=== PATIENT | female | born 1990 | race Caucasian/White ===

== ENCOUNTER 2016-11-17 14:41 | Emergency (ER) | payer OTHER ==
[~2016-11-17] VITALS: Ht 170.2 cm; Wt 136.5 kg
[~2016-11-17 14:41] MED LIST: TRAMADOL HCL50 MG PO; ZOFRAN ODT4 MG SL
[2016-11-17] MEDS ORDERED: MONO-LINYAH1 EACH PO (15:17)
[2016-11-17] MEDS ORDERED: METFORMIN HCL500 MG PO (15:18)
[2016-11-17] MEDS ORDERED: ONDANSETRON ODT8 MG PO (18:04)
[2016-11-17] MEDS ORDERED: PROVERA10 MG PO (18:04)
[2016-11-17] MEDS ORDERED: ULTRAM50 MG PO (18:04)
== END 2016-11-17 18:38 | disposition home or self-care (01) ==
LOC: ED 14:41
DX: N93.8 Other specified abnormal uterine and vaginal bleeding (principal); J45.909 Unspecified asthma, uncomplicated; E66.01 Morbid (severe) obesity due to excess calories; Z90.49 Acquired absence of other specified parts of digestive tract; Z88.6 Allergy status to analgesic agent; Z88.5 Allergy status to narcotic agent; Z79.899 Other long term (current) drug therapy
CPT/HCPCS: 36415; 76830; 76856; 80053; 81001; 84703; 85025; 96374; 96375; 96376; 99284; J1170; J2405; J2550

== ENCOUNTER 2016-12-20 05:50 | Day surgery (SDC) | payer OTHER ==
[~2016-12-20] VITALS: Ht 170.2 cm; Wt 130.2 kg
[~2016-12-20 05:50] MED LIST changes: +METFORMIN HCL500 MG PO; +MONO-LINYAH1 EACH PO; +ONDANSETRON ODT8 MG PO; +PROVERA10 MG PO; +ULTRAM50 MG PO
--- NOTE | 2016-12-20 08:45 | NUR ---
12/20/16 0845 Tish Couch 0805 WITH ORAL AIRWAY IN PLACE, RESP EVEN AND UNLABORED. 0807 AIRWAY REMOVED. 0812 MD AT BEDSIDE. 0815 PT REPORTS PAIN 09/19 AND IS BACK TO SLEEP. O2 DECREASED TO 6L VIA MASK, SAT 100% 0818 MEDICATION GIVEN FOR PAIN. 0820 O2 REMOVED, PT O2 SAT 100% 0825 PT REPORTING NAUSEA AND DRY HEAVING, NO EMISIS. 0830 MEDICAITON GIVEN FOR NAUSEA.
--- NOTE | 2016-12-20 09:14 | NUR ---
PT IS BACK TO DS FROM PACU. FAMILY IS AT THE BEDSIDE. PT IS ASLEEP AND WILL BRIEFLY WAKE UP TO ANSWER QUESTIONS. CALL LIGHT WITHIN REACH. NO OTHER C/O'S AT THIS TIME. WILL REASSESS WITHIN THE HOUR.
--- NOTE | 2016-12-20 10:23 | NUR ---
PT UP TO BR W/RN STANDBY. PT AMBULATES WELL AND DENIES DIZZINESS. PT VOIDS 600 ML PINK TINGED URINE AND AMBULATES BACK TO BED. PT REQ TO BE SITTING UP IN BED. FAMILY REMAINS @ BS AND CALL LIGHT W/IN REACH. CHUCKS UNDER PATIENT CHANGED PRIOR PAD CONTAINED A MODERATE AMOUNT OF PINK/RED DRAINAGE.
[2016-12-20] MEDS ORDERED: IBUPROFEN800 MG PO (10:38)
[2016-12-20] MEDS ORDERED: ESTRACE2 MG PO (10:39)
[2016-12-20] MEDS ORDERED: PROVERA10 MG (10:40)
[2016-12-20] MEDS ORDERED: ULTRAM50 MG PO (10:41)
--- NOTE | 2016-12-20 11:00 | NUR ---
1055 AMB TO BR AMB WELL. HAS EATEN CRACKERS AND DRANK WATER. DENIES NAUSEA, RATES PAIN AT 6-7 DENIES NEED FOR PAIN MED. TOO EARLY FOR MOTRIN. WANTS TO GO HOME. VOIDED 325 EARLIER. FAMILY HERE TO TAKE PT HOME.
--- NOTE | 2017-01-13 08:34 | OR ---
[facility] [address] [place], [place] [address] Signed DATE OF OPERATION: 12/20/2016 SURGEON: Thao Triana MD PREOPERATIVE DIAGNOSES: Endometrial polyps, menometrorrhagia. POSTOPERATIVE DIAGNOSES: Endometrial polyps, menometrorrhagia, pending pathology. PROCEDURE: Hysteroscopy, D and C, resection of polyps. ANESTHESIA: General LMA. ESTIMATED BLOOD LOSS: Minimal. DRAINS: None. INDICATIONS AND FINDINGS: The patient is a 26-year-old female, 5, para 1, SAB 4, who has been having abnormal bleeding since August. Her bleeding has been almost nonstop since that time. She did stop for short period of time on very high-dose progesterone, but then immediately restarted heavy bleeding. Hysterosonogram was done in the office, which revealed probable endometrial polyps as well as a thickened endometrium despite the fact that she continued to bleed. At the time of surgery, exam under anesthesia revealed an apparently normal size uterus. The adnexa could not be appreciated. The patient does have morbid obesity. The cavity sounded to 10 cm. The cavity was quite irregular with multiple polypoid appearing areas. DESCRIPTION OF PROCEDURE: The patient was prepped and draped in the dorsal lithotomy position. The swan neck speculum was used in the posterior cul-de-sac because of her size. The anterior lip of the cervix was then visualized and grasped with a single-tooth tenaculum. The cavity was sounded to 10 cm. The endocervical canal was then easily dilated to a #8 dilator. The MyoSure device was then placed using saline. The cavity was evaluated and multiple irregular areas identified. The MyoSure device was removed and D and C was done with Electronically Signed By: THAO TRIANA MD 01/13/17 0834 PATIENT NAME: KD CARRIZALES OPERATIVE REPORT DATE OF : [birth year] PHYSICIAN: THAO TRIANA MD REPORT #: [id number] REPORT IS CONFIDENTIAL AND NOT TO BE RELEASED WITHOUT AUTHORIZATION [facility] [address] [place], [place] [address] Signed removal of a small amount of tissue. The MyoSure device was replaced using the MyoSure LITE and the abnormal areas were removed from both the anterior and posterior aspects of the uterus. Following this, it did appear that the cavity was fairly regular without any evidence of remaining polyps. The procedure was then terminated. There was difficulty with the MyoSure device meaning that there was quite a bit of fluid spillage on the floor and poor suctioning of the material. It was not felt that there was significant fluid retention by the patient. The tenaculum was then removed and there was some bleeding from the tenaculum sites, which responded to pressure. The weighted speculum was then removed and the patient was taken to the recovery room in good condition. MD DINA ClarkW/AUGIEL /[id number] cc: Raquel Electronically Signed By: THAO TRIANA MD 01/13/17 0834 PATIENT NAME: KD CARRIZALES OPERATIVE REPORT DATE OF : [birth year] PHYSICIAN: THAO TRIANA MD REPORT #: [id number] REPORT IS CONFIDENTIAL AND NOT TO BE RELEASED WITHOUT AUTHORIZATION
== END 2016-12-20 10:55 | disposition home or self-care (01) ==
LOC: DS 05:50
PROVIDERS: Obstetrics & Gynecology
PROC: 0UDB8ZX Extraction of Endometrium, Via Natural or Artificial Opening Endoscopic, Diagnostic (ICD-10-PCS; 2016-12-20)
PROC: 0UB98ZX Excision of Uterus, Via Natural or Artificial Opening Endoscopic, Diagnostic (ICD-10-PCS; principal; 2016-12-20 06:45)
DX: N84.0 Polyp of corpus uteri (principal); E66.01 Morbid (severe) obesity due to excess calories; J45.20 Mild intermittent asthma, uncomplicated; G43.909 Migraine, unspecified, not intractable, without status migrainosus; Z90.49 Acquired absence of other specified parts of digestive tract; Z98.890 Other specified postprocedural states; Z88.8 Allergy status to other drugs, medicaments and biological substances; Z79.899 Other long term (current) drug therapy
CPT/HCPCS: 00952; 84703; J1100; J1885; J2250; J2405; J2704; J2765; J3010; J7120

== ENCOUNTER 2018-06-21 09:36 | Emergency (ER) | payer OTHER ==
[~2018-06-21] VITALS: Ht 170.2 cm; Wt 142.0 kg
[~2018-06-21 09:36] MED LIST changes: +ESTRACE2 MG PO; +IBUPROFEN800 MG PO; +PROVERA10 MG
[2018-06-21] MEDS ORDERED: GLUCOPHAGE1000 MG PO (09:56)
[2018-06-21] MEDS ORDERED: DOXYCYCLINE HY100 MG PO (09:57)
[2018-06-21] MEDS ORDERED: FLAGYL500 MG PO (09:58)
== END 2018-06-21 13:20 | disposition home or self-care (01) ==
LOC: ED 09:36
DX: N93.9 Abnormal uterine and vaginal bleeding, unspecified (principal); R11.2 Nausea with vomiting, unspecified; E66.01 Morbid (severe) obesity due to excess calories; J45.909 Unspecified asthma, uncomplicated; Z90.49 Acquired absence of other specified parts of digestive tract; Z88.6 Allergy status to analgesic agent; Z88.5 Allergy status to narcotic agent; Z79.84 Long term (current) use of oral hypoglycemic drugs; Z79.899 Other long term (current) drug therapy
CPT/HCPCS: 76830; 76856; 80053; 81001; 83690; 84703; 85025; 96361; 96374; 96375; 99284-25; J1885; J2405; J7030

== ENCOUNTER 2018-08-12 06:55 | Day surgery (SDC) | payer OTHER ==
[~2018-08-12] VITALS: Ht 170.2 cm; Wt 141.5 kg
--- NOTE | ~2018-08-12 | OR ---
[facility] [address], [place] [address] Draft DATE OF OPERATION: 08/12/2018 SURGEON: Thao Triana MD WEB CONSULTANT: Yonis Sloan MD PREOPERATIVE DIAGNOSES: Pelvic pain, history of endometriosis, morbid obesity. POSTOPERATIVE DIAGNOSES: Pelvic pain, history of endometriosis, morbid obesity; normal pelvis. PROCEDURE PERFORMED: Diagnostic laparoscopy. ANESTHESIA: General ET. ESTIMATED BLOOD LOSS: Minimal. DRAINS: None. INDICATIONS AND FINDINGS: The patient is a 28-year-old female, 5, para 1, SAB 4, who has a history of irregular bleeding, though she has done well on cyclic progestins. She also has history of pelvic pain. She has a history of endometriosis on prior laparoscopy. Ultrasound was normal. She did not respond to a course of antibiotics. At the time of surgery, exam under anesthesia was normal, though was very difficult to fully evaluate the adnexa given her morbid obesity. At the time of laparoscopy, the pelvis was found to be completely normal. DESCRIPTION OF PROCEDURE: The patient was prepped and draped in the dorsal lithotomy position. A weighted speculum was placed. The anterior lip of the cervix was visualized and grasped with a single-tooth tenaculum. The Hulka clamp was then placed. The tenaculum and speculum were then removed. Attention was directed above. The infraumbilical area was injected with 0.5% Marcaine plain. An incision was made with a knife and then each layer was PATIENT NAME: KD CARRIZALES OPERATIVE REPORT DATE OF : [birth year] REPORT #: [id number] PHYSICIAN: THAO TRIANA MD PCP: NO PRIMARY CARE PHYSICIAN REPORT IS CONFIDENTIAL AND NOT TO BE RELEASED WITHOUT AUTHORIZATION [facility] [address] [place], [place] [address] Draft serially elevated and incised until the fascia could finally be identified. The abdominal wall was extremely deep. The fascia was opened and stay sutures were placed. The peritoneum was then opened bluntly and the Maday cannula was placed. The bariatric length was used. Following this, the balloon was inflated and the abdomen was inflated with carbon dioxide gas. Placement of the scope confirmed proper positioning. Following this, a 2nd port was done laterally. This was placed on the patient's left slightly below the level of the umbilicus. The attempt was made to transillumination, though this was impossible given the thickness of the abdominal wall. An area was chosen, injected with the Marcaine, incision made with a knife and a 5 mm port placed under direct vision. The pelvis was then thoroughly evaluated. There was no evidence of any endometriosis or scar tissue found. Following this, the procedure was complete. The inserts removed after allowing as much CO2 as possible to escape. The fascial incision of the umbilicus was reidentified and closed with a running suture of 0 Vicryl. The skin incisions were closed with subcuticular sutures of 3-0 Vicryl Rapide. The vaginal instruments removed. There was no evidence of any ongoing bleeding from the cervix. The patient was then taken to the recovery room in good condition. MD DINA ClarkW/AUGIEL /[id number] Copies: ~ PATIENT NAME: KD CARRIZALES OPERATIVE REPORT DATE OF : [birth year] REPORT #: [id number] PHYSICIAN: THAO TRIANA MD PCP: NO PRIMARY CARE PHYSICIAN REPORT IS CONFIDENTIAL AND NOT TO BE RELEASED WITHOUT AUTHORIZATION
[~2018-08-12 06:55] MED LIST changes: +DOXYCYCLINE HY100 MG PO; +FLAGYL500 MG PO; +GLUCOPHAGE1000 MG PO; +VITAMIN D35000 UNI1 PO
--- NOTE | 2018-08-12 08:24 | NUR ---
ASSISTED TO BR. IV PATENT AND DENIES ANY NEEDS. UPDATED ON WAIT.
[2018-08-12] MEDS ORDERED: VENTOLIN HFA18 GM INH (10:29)
--- NOTE | 2018-08-12 12:13 | NUR ---
08/12/18 1212 Sumaya Shah 1206-PATIENT ARRIVED TO PACU ON 6L MASK RR EVEN. SR. PATIENT REACTIVE TO VOICE OPENS EYES DOES NOT FOLLOW COMMANDS. 2 BANDAIDS TO ABDOMEN CDI.
--- NOTE | 2018-08-12 12:54 | NUR ---
RETURNED SAYS VERY PAINFUL RATES PAIN 08/19 REQ IV DOSE RX.OXIMETRY ON TO MONITOR AFTER MORPHINE GIVEN.
--- NOTE | 2018-08-12 13:15 | NUR ---
PT RESTING IN BED AND USING HER PHONE, PT RATES PAIN 4/10 WHILE NOT MOVING AND 9/10 WITH MOVEMENT. PT ASKED FOR MORE JELLO, JELLO GIVEN AND PT TALKING ON THE PHONE. NO GRIMACING NOTED. RN WILL CONTINUE TO MONITOR.
--- NOTE | 2018-08-12 13:37 | NUR ---
HAS EATEN JELLO AND CRACKERS AND PUDDING 200MLS WATER. DENIES NAUSEA. RATES Pain at 5/10 and states this is acceptable.
--- NOTE | 2018-08-12 14:10 | NUR ---
UP TO BR VOIDS 100MLS.
[2018-08-12] MEDS ORDERED: IBU800 MG PO (14:46)
[2018-08-12] MEDS ORDERED: ULTRAM50 MG PO (14:46)
[2018-08-12] MEDS ORDERED: ZOFRAN8 MG PO (14:47)
--- NOTE | 2018-08-12 15:16 | NUR ---
WHEN GETTING IN CAR STATES FELT POP IN UMBILICUS LOOKED AND BANDAID AND STERI STRIP STILL INTACT. IF ANY CHANGES AT HOME TO CALL DR PICKARD.
== END 2018-08-12 15:05 | disposition home or self-care (01) ==
LOC: DS 06:55
PROVIDERS: Obstetrics & Gynecology
PROC: 0WJJ4ZZ Inspection of Pelvic Cavity, Percutaneous Endoscopic Approach (ICD-10-PCS; principal; 2018-08-12 09:15)
DX: R10.2 Pelvic and perineal pain (principal); E66.01 Morbid (severe) obesity due to excess calories; Z88.8 Allergy status to other drugs, medicaments and biological substances; Z88.5 Allergy status to narcotic agent; Z79.899 Other long term (current) drug therapy; Z79.84 Long term (current) use of oral hypoglycemic drugs; Z68.42 Body mass index [BMI] 45.0-49.9, adult
CPT/HCPCS: 00840; 93005; 93010; J0131; J0330; J1100; J1644; J1885; J2250; J2270; J2405; J2704; J2765; J3475; J7120

== ENCOUNTER 2021-07-07 15:06 | Inpatient (IN) | payer OTHER ==
[~2021-07-07] VITALS: Ht 170.2 cm; Wt 113.4 kg
[~2021-07-07 15:06] MED LIST changes: +IBU800 MG PO; +VENTOLIN HFA18 GM INH; +ZOFRAN8 MG PO
--- OUTSIDE RECORDS SUMMARY | 2021-07-07 17:00 | XMS ---
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 E.D. VISIT COUNT (12 MO.) [address] TOTAL 4 NOTE: Visits indicate total known visits. ED/UCC VISIT TRACKING (12 MO.) 07/07/2021 15:06 [facility] [place] TYPE: Emergency COMPLAINT: - ABD PAIN, NAUSEA, BLOODY STOOL 07/05/2021 12:01 [facility] [place] TYPE: Emergency DIAGNOSES: - Bariatric surgery status - Thrombocytopenia, unspecified - ABD PAIN AND SWELLING NAUSEA FEVER 04/21/2021 14:20 [facility] [place] TYPE: Emergency DIAGNOSES: - Other allergy, initial encounter - Other acute postprocedural pain - FEVER POST OP PAIN POSSIBLE INFECTION 10/24/2020 12:46 [facility] [place] TYPE: Emergency DIAGNOSES: - COVID-19 - Elevated blood-pressure reading, without diagnosis of hypertension - SHORTNESS OF BREATH - Acute bronchitis due to other specified organisms - Pneumonia due to coronavirus disease 2018 INPATIENT VISIT TRACKING (12 MO.) 04/12/2021 05:42 [facility] [place] TYPE: Weight Management DIAGNOSES: 39363. E66.01, Z68.42 (ICD-10-CM) - 278.01, V85.42 (ICD-9-CM) - Class 3 severe obesity due to excess calories with serious comorbidity and body mass index (BMI) of 45.0 to 49.9 in adult (HCC) 08135. Morbid (severe) obesity due to excess calories 79863. Body mass index [BMI] 45.0-49.9, adult [email or web address]
[2021-07-07] MEDS ORDERED: OMEPRAZOLE20 MG PO (17:57)
[2021-07-07] MEDS ORDERED: ONDANSETRON ODT8 MG PO (19:56)
--- NOTE | 2021-07-08 03:17 | NUR ---
PATIENT ARRIVED TO THE FLOOR VIA STRETCHER. PATIENT ABLE TO PIVOT XFER TO HOSPITAL BED A 1PA. PATIENTS VITALS TAKEN AND RECORDED. IV INFUSING PER ORDER. PATIENT DENIES ANY NAUSEA. PATIENT RATES PAIN AT A 2/10 AND DENIES THE NEED FOR PAIN MEDICATION AT THIS TIME. WARM BLANKET PROVIDED. ADMISSION COMPLETED. EDUCATED PATIENT ON NPO AND ALL QUESTIONS ANSWERED, ORAL SWABS PROVIDED. PATIENT IS ON RA. PATIENT HAS ZIO MONITOR IN PLACE ON LEFT UPPER CHEST THAT WAS PLACED IN ED. PATIENTS BOWEL TONES ARE ACTIVE. PATIENTS ABD IS TENDER IN LEFT UPPER QUADRANT TO MID ABD. PATIENT DENIES ANY NEEDS. OREINTED PATIENT TO CALL LIGHT AND IT IS WITHIN REACH.
--- NOTE | 2021-07-08 04:01 | NUR ---
PATIENTS ATTEND CHANGED AND NICK CARE COMPLETED. PATIENT REPORTS 10/10 PAIN, PRN PAIN MEDICATION GIVEN PER ORDER. PATIENT GIVEN PRN NAUSEA MEDICATION FOR C/O NAUSEA. PATIENT REPOSITIONED IN BED. PATIENTS IV INFUSING PER ORDER. PATIENT PROVIDED ICE CHIPS. NO FURHTER NEEDS NOTED. CALL LIGHT IN REACH.
--- NOTE | 2021-07-08 04:07 | NUR ---
PATIENT IS RESTING IN BED WITH EYES CLOSED, RR 19. CALL LIGHT IN REACH.
--- NOTE | 2021-07-08 06:43 | NUR ---
VITALS TAKEN AND RECORDED. ATTEMPTED TO ASSIST PATIENT TO THE RESTRROM. PATIENT BECAME DIZZY AND LIGHT HEADED. PATIENT ASSISTED A 1PA TO [facility]. PATIENT ABLE TO VOID. INTAKE AND OUTPUT RECORDED. PATIENT RATES PAIN AT A 8/10 IN HER LUQ. PRN PAIN MEDICATION GIVEN PER ORDER. PATIENT DENIES ANY NAUSEA. IV INFUSING PER ORDER. NO FURTHER NEEDS NOTED. CALL LIGHT IN REACH.
--- NOTE | 2021-07-08 07:36 | NUR ---
RECVikram. BEDSIDE REPORT FROM NIGHT RN, ASSUMED ALL CARE OF PT.
--- NOTE | 2021-07-08 10:28 | NUR ---
PT. ESCORTED VIA STRETCHER TO ENDOSCOPY SUITE FOR EGD. UPDATED TO ALLERGIES AND PMH. IVF ACCOMPANIED PT.
--- NOTE | 2021-07-08 11:40 | NUR ---
07/08/21 1140 Tish Bird 1045 PT ARRIVED TO PACU ON 10L VAI MASK, JAW THRUST USED TO MAINTAIN AIRWAY. VSS. 1046 PT HEAD TURNED TO THE SIDE AND PT MAINTAINING HER OWN AIRWAY. 1053 PT WOKE AND O2 REMOVED. PT REORIENTED TO PACU AND EASILY FALLS BACK TO SLEEP. 1058 O2 SAT 90% AND PT WAKES EASILY TO TACTILE STIMULI AND IS ENCOURAGED TO DEEP BREATHE. O92 INCREASED TO HIGH 90S. 1115 MD TALKING TO PT AND VSS. PLAN OF CARE DISUCSSED. 1130 PT RETURNED TO MED-SURG ROOM AND REPORT GIVEN. PT UP TO BEDSIDE COMMODE WITH TWO RNS. VSS. ALL QUESTIONS ANSWERED AND BED PLUGGED IN.
--- NOTE | 2021-07-08 12:14 | NUR ---
PT. RETURNED TO ROOM AT 1135, EGD IS CLEAN AND ADVANCING DIET. ALL VSS, PT. RECEIVED ATROPINE IN CASE FOR SB 40'S. HR NOW 59, ASSISTED TO BSC FOR URINATION, NO DIZZINESS, JUST DROWSY FROM MEDS. PLACED SCD'S BILATERALLY, DISCUSSED HEPARIN WITH AND HER PMH OF JAYSHREE DANLOSE SYNDROME. LR IVF AT 125 ML HR, ADVANCED DIET TO FULL LIQUIDS.
--- NOTE | 2021-07-08 13:59 | NUR ---
SBA TO BSC FOR URINE, PT. SAT AT EOB AND WAS SLIGHTLY DIZZY, SHE WAS DIZZY THE WHOLE TIME ON THE BSC AND BACK TO BED, BED ALARM ON SECONDARY TO SLIGHT CONFUSION S/P PROCEDURE AND MEDS. SCD'S IN PLACE, IVF PATENT TO PUMP. SHE SAMPLED SOME LIQUIDS BUT THEN WENT BACK TO SLEEP. WILL TRIAL AMBULATION WHEN LESS SLEEPY.
--- NOTE | 2021-07-08 16:11 | NUR ---
ADMITTED WITH ABDOMINAL PAIN, DID REQUIRE DILAUDID LAST NIGHT. EGD COMPLETED TODAY WHICH WAS NEGATIVE. PMH; POTS, JAYSHREE DANLOSE SYNDROME. SHE DID GET DIZZY WHEN SITTING ON THE EDGE OF THE BED AND BSC AND BACK TO BED. SHE HAD THIS A YOUNG TEEN BUT OUTGREW IT AND STATES SINCE HER GASTRIC BYPASS SURGERY 05/01 AT [facility]. IT HAS FLARED UP AGAIN. SHE HAS A ZIO PATCH ON WHICH WAS PLACED IN THE ER. SB CONTINUES BETWEEN 40-60'S. LR IVF AT 125. B/P 118/62. DENIES NAUSEA, ADVANCED TO FL DIET BUT ONLY ATE ONE PUDDING AND A SMALL CUP OF JUICE. CARAFATE ORDERED.
--- NOTE | 2021-07-08 19:24 | OR ---
[facility] [address] [place], [place] [address] Signed DATE OF OPERATION: 07/08/2021 SURGEON: Dustin Hagan MD PREOPERATIVE DIAGNOSES: 1. Persistent epigastric pain, status post gastric sleeve resection [facility] (may 13, 2021). 2. Symptomatic bradycardia, unknown etiology. POSTOPERATIVE DIAGNOSES: Normal-appearing esophagus, stomach remnant and duodenum. CLOtest equivocal at 15 minutes. PROCEDURE: Esophagogastroduodenoscopy with biopsy. ANESTHESIA: Intravenous sedation, propofol infusion, Dustin Conway CRNA with pretreatment atropine 1 mg. INDICATION: This 31-year-old morbidly obese white woman is a patient of SHANNON Stone at the [facility]. The patient underwent a gastric sleeve resection for obesity June 12, 2021, at [facility]. She did not have any known perioperative complications. She presented to the hospital in [place] three days ago with complaints of epigastric left upper abdominal pain. She had been placed on omeprazole postoperatively by her operating team and has had virtual telehealth followups at [facility]. Her evaluation at [place] showed her to have a normal CT scan. However, IV contrast was not able to be given due to the shortage of IV contrast. As her symptoms did not improve, she presented to the [facility] in [place] yesterday and repeat CT scan with IV and GI contrast showed no evidence of complication related to operation, specifically no fluid collection, free air or signs of ischemic change. The patient has noted no benefit with omeprazole that she has been taking. She has no associated dysphagia, hematemesis or blood per rectum. Of note, she has lost 70 pounds since her operation two months ago. Associated with all of this has been symptomatic bradycardia. Her heart rate has been as low as mid to high 30s and as high as 50s to 100s depending on clinical circumstances. She feels severe pain in the epigastric and left upper quadrant upon Electronically Signed By: DUSTIN HAGAN MD 07/08/21 1924 PATIENT NAME: KD CARRIZALES OPERATIVE REPORT DATE OF : [birth year] REPORT #: [id number] PHYSICIAN: DUSTIN HAGAN MD PCP: YANI MELVIN REPORT IS CONFIDENTIAL AND NOT TO BE RELEASED WITHOUT AUTHORIZATION [facility] [address] [place], [place] [address] Signed eating. She has no associated dysphagia. She describes the pain as knife-like or razor like. The patient has been admitted to my service, given intravenous hydration and is recommended to undergo upper endoscopy at this time. The risk of bleeding, infection, perforation, precipitation of cardiac event and so forth have all been reviewed with her. She understands and wished to proceed. FINDINGS: The patient was pretreated with atropine 1 mg IV, which allowed her heart rate to be in the 80 to 100 range. She tolerated the procedure well. Upper endoscopy was essentially normal of the esophagus, stomach remnant and duodenum. There was no sign of ulceration or ischemia. The staple line was healing perfectly well. Her CLOtest is equivocal 15 minutes post procedure and we will keep an eye on that. Biopsies were taken of the esophagus, stomach and duodenum. There was no evidence of hiatal hernia on retroflexed view. There was no esophagitis or stricture. She did have a small diverticulum of the 2nd portion of the duodenum with a very narrow opening unlikely to be the source of her pain. DESCRIPTION OF PROCEDURE: The patient was brought to the endoscopy suite and placed in lateral decubitus position after receiving atropine 1 mg which allowed her heart rate of approximately 100 with a blood pressure of 121 systolic. Lidocaine topical hypopharyngeal anesthesia was given. A bite block was placed. She was given intravenous sedation with propofol infusional technique. An Olympus video upper endoscope was passed in the hypopharynx. The vocal cords were normal. Scope was advanced to the esophagus, which was normal throughout including no evidence of Bergman's epithelium, stricture, neoplasm or varices. The scope was passed to the stomach, which appeared completely healthy in every way. The staple line from resection was easily identified and there was no associated ulceration or signs of ischemia with it. The pylorus was normal. Scope was passed through into the duodenum, which was normal. Biopsies were taken of the duodenum and 2nd bulbar portions. The scope was withdrawn to the antrum for both LIZA and pathologic testing. Retroflexed view was able to be accomplished showing a normal flap valve. Biopsies were taken of the stomach for both LIZA and pathologic testing. The scope was withdrawn to the esophagus. It appeared normal. Biopsies were obtained nevertheless. Further withdrawal of the scope showed no other findings of concern. The scope was removed and the patient was taken to the recovery room in good condition. CONCLUDING DIAGNOSIS: Non ulcer dyspepsia or possible symptoms of irritable bowel syndrome. No evidence of ischemia or ulceration. She is on omeprazole currently. Empiric treatment with Carafate will be undertaken. We are mindful of possibility of H pylori-- The CLOtest currently is equivocal and treatment for H pylori will be important if H Electronically Signed By: DUSTIN HAGAN MD 07/08/21 1924 PATIENT NAME: KD CARRIZALES OPERATIVE REPORT DATE OF : [birth year] REPORT #: [id number] PHYSICIAN: DUSTIN HAGAN MD PCP: YANI MELVIN REPORT IS CONFIDENTIAL AND NOT TO BE RELEASED WITHOUT AUTHORIZATION [facility] [address] [place], [place] [address] Signed pylori is identified, of course. The patient noted just prior to induction of sedation that she had been discovered to have "irritable bowel syndrome" in her endoscopic evaluations elsewhere. If she does indeed have irritable bowel syndrome, this underlying malady be contribute to her gastrointestinal symptoms and thus be entirely unrelated to the sleeve procedure she has undergone. She is already enjoying a significant weight loss with the operation and it appears to have been optimally performed, in my opinion. MD MIGUEL ANGEL Hoskins/JENISE /[id number] cc: SHANNON Stone Dr., Dr., CAREY Savage Copies: ~ Electronically Signed By: DUSTIN HAGAN MD 07/08/21 1924 PATIENT NAME: KD CARRIZALES OPERATIVE REPORT DATE OF : [birth year] REPORT #: [id number] PHYSICIAN: DUSTIN HAGAN MD PCP: YANI MELVIN REPORT IS CONFIDENTIAL AND NOT TO BE RELEASED WITHOUT AUTHORIZATION
--- NOTE | 2021-07-08 19:24 | HP ---
[facility] [address], [place] [address] Signed ADMISSION DATE: 07/08/2021 REASON FOR ADMISSION: Epigastric pain and episodic symptomatic bradycardia, history of gastric sleeve resection two months ago. HISTORY OF PRESENT ILLNESS: This 31-year-old white woman lives in [place], [place] with her four children and live-in boyfriend. She underwent a gastric sleeve resection for morbid obesity at [facility] on July 13, 2021. She has lost 70 pounds thus far from her operation. In the past week or so, she has had increasing epigastric and left upper abdominal pain. She has had followup visits by a virtual technique through [facility] who is made aware of this. She is noted to have had bradycardia with heart rate as low as 39, but generally in the 50s. She presented to the emergency room in [place], [place] where she lives approximately three days ago and was evaluated there by CT scan. Due to the shortage of IV contrast, she had an enteric but not IV contrast abdominal CT scan, which is reported to have had no findings of note. She was considered to have a low platelet count there, however. This was in the 70s. Her symptoms persisted and she was advised by her provider Ms. Tilley at the [facility] to present to [facility] as they were considered to "have more things they could do." On that basis, she presented to the emergency room yesterday at 7:30 p.m., initially evaluated by Dr. Kitchen and subsequently by Dr. Savage. I was called approximately at midnight about this and recommended a repeat CT scan to assess if there was an enteric leak. A CT scan with the GI contrast and IV contrast was performed, ultimately showing no evidence of free air or perigastric inflammation. Notably her platelet count was 220,000 and her previous thrombocytopenia was considered spurious from a few days ago. Her symptoms are primarily stabbing epigastric and left subcostal pain. She feels like it is "razor blades" as soon as food enters her stomach. She does not have dysphagia and she has had no hematemesis or blood per rectum. Her bradycardic episodes have been as low as the high 30s. She notes that when this is happening and she is upright that she has tunnel vision which of course would indicate symptomatic bradycardia. A clay pigeon loader was consulted at [facility] by Dr. Kitchen who thought that it was not likely a cardiology problem primarily but rather a sign of secondary increased vagal tone related Electronically Signed By: DUSTIN HAGAN MD 07/08/21 1924 PATIENT NAME: KD CARRIZALES HISTORY AND PHYSICAL DATE OF : [birth year] REPORT #: [id number] PHYSICIAN: DUSTIN HAGAN MD PCP: YANI TILLEY REPORT IS CONFIDENTIAL AND NOT TO BE RELEASED WITHOUT AUTHORIZATION [address] [address] Signed to her abdominal pain. The bariatric surgeon, Dr. Handley at [facility] agreed with this according to notes I have available to me and would not be able to accept the patient for evaluation as a hospitalist "full." The patient is admitted for further evaluation and care. Evaluation in the emergency room confirmed the negative findings on the CT scan. Her white count was only 10.5, hematocrit 44.6, and platelets 216,000. Electrolytes are normal, creatinine 0.75. Her liver enzymes are normal. Urinalysis showed RBCs 4 to 6 and white cells 2 to 3 per high-power field. Leukocyte esterase was negative. Her COVID test was negative. Review of her emergency room course showed her to have symptomatic sensation of lightheadedness when lifting her head up. Her heart rate went as high as 80s to 90s upon sitting up in the 40s while lying supine. She is likely thought to be dehydrated. The patient since admission has been rehydrated with IV fluids and is generally feeling better. She has not been given anything to eat anticipating upper endoscopy likely this morning. REVIEW OF SYSTEMS: She denies any precordial chest pain. She does not have shortness of breath. Has had presyncopal symptoms as previously described upon rapid rising. PHYSICAL EXAMINATION: GENERAL: Pleasant white woman who does not look systemically toxic. VITAL SIGNS: Most recent vital signs show temperature of 97.3, pulse of 40, previously 54; blood pressure 102/50, O2 saturation 100% on room air. NECK: Trachea is midline. CHEST: Shows normal respiratory excursion. She has no tachypnea. HEART: Regular and on palpation approximately 50 beats per minute. ABDOMEN: Still somewhat obese but soft. There is mild tenderness in the epigastric area. Laparoscopic trocar site incisions are healing well. LABORATORY STUDIES: Are as previously noted including a white count of 10.5, hematocrit 44.6, platelets 216,000. Normal Chem profile, urinalysis and COVID test. I have reviewed the imaging of the CT scan including coronal and transverse images. I see no evidence of splenic infarct or splenic vein thrombosis. No sign of perigastric leak or free air. ASSESSMENT: The patient has been on PPI medication, which has been of no significant benefit to her current symptoms. Still the possibility of gastritis or ulceration is considered. This Electronically Signed By: DUSTIN HAGAN MD 07/08/21 1924 PATIENT NAME: KD CARRIZALES HISTORY AND PHYSICAL DATE OF : [birth year] REPORT #: [id number] PHYSICIAN: DUSTIN HAGAN MD PCP: YANI TILLEY REPORT IS CONFIDENTIAL AND NOT TO BE RELEASED WITHOUT AUTHORIZATION [facility] [address], [place] [address] Signed may not be necessarily acid related, but possibly ischemia related. Although it is "hard to kill the stomach" due to its redundant vascular supply, a gastric sleeve resection does have some risk of ischemia in the david greater curvature ( staple line.) I would recommend upper endoscopy be performed this morning. Likely Carafate may be of some benefit to her. She has already benefitted from admission with hydration and so forth. I see no evidence of cardiac ischemia upon review of her EKG which was performed in the emergency room just bradycardia as previously described with a heart rate of 39. The risk of bleeding, infection, and perforation related to upper endoscopy reviewed with her in detail. The possibility of adverse reaction to sedation also reviewed. On that basis and given her obesity and so forth, we will deploy the services of anesthesia for her sedation today. MD MIGUEL ANGEL Hoskins/AUGIEL /[id number] cc: Dr. Imtiaz Handley, [facility] Copies: ~ Electronically Signed By: DUSTIN HAGAN MD 07/08/21 1924 PATIENT NAME: KD CARRIZALES HISTORY AND PHYSICAL DATE OF : [birth year] REPORT #: [id number] PHYSICIAN: DUSTIN HAGAN MD PCP: YANI TILLEY REPORT IS CONFIDENTIAL AND NOT TO BE RELEASED WITHOUT AUTHORIZATION
--- NOTE | 2021-07-08 19:30 | NUR ---
REPORT RECEIVED FROM СВЕТЛАНА MUKHERJEE. pt RESTING IN BED WITH EYES CLSOED. BREATHING EQUAL AND UNLABORED. NO DISTRESS NOTED.
--- NOTE | 2021-07-08 20:28 | NUR ---
PT CALLED, SBA TO BSC, C/O DIZZINESS, MOVED SLOWLY, VOIDED WELL. BACK TO BED, CELL PHONE CHARGING FOR PT. ASSISTED PT TO LAY ON HER RIGHT SIDE, CALL LIGHT WITHIN REACH. NO OTHER NEEDS.
--- NOTE | 2021-07-08 21:10 | NUR ---
pt RESTING IN BED AWAKE. RATES PAIN 6/10 IN ABDOMEN. BOWEL TONES HYPOACTIVE X 4, ABD SOFT, TENDER WITH PALPATION IN MID ABD, LEFT UPPER ABD. PRN PAIN MEDICATION ADMINISTERED. EDUCATION PROVIDED ON SCHEDULED MEDICATIONS. ALERT AND ORIENTED. VS COMPLETE, HR REGULAR RHYTHM, BRADYCARDIC. pt DENIES DIZZINESS AT REST. CALL LIGHT IN REACH. SCDS ON. BED ALARM SET FOR SAFETY.
--- NOTE | 2021-07-08 21:42 | EKG ---
[facility] [address] [facility] [place], [place] [address] Signed Marked sinus bradycardia Abnormal ECG No previous ECGs available Confirmed by DORIS LEHMAN MD ([id number]) on 07/08/2021 9:42:20 PM Electronically Signed By: DORIS LEHMAN MD 07/08/212141 PATIENT NAME: KD CARRIZALES Electrocardiogram DATE OF : [birth year] PHYSICIAN: DORIS LEHMAN MD REPORT #: [id number] REPORT IS CONFIDENTIAL AND NOT TO BE RELEASED WITHOUT AUTHORIZATION
--- NOTE | 2021-07-08 23:23 | NUR ---
SBA TO BSC. BACK TO BED. PRIMARY RN IN ROOM, TO ASSIST.
--- NOTE | 2021-07-08 23:26 | NUR ---
IV PUMP ALARMING, RN YOLANDA IN ROOM. 1PA TO BSC, GAIT UNSTEADY, pt SITS ON BSC ABRUPTLY. VOID IN BSC AND BACK TO BED. NEW BAG IVF INFUSING WNL. CALL LIGHT IN REACH. NEW WARM PACK PROVIDED TO pt. pt NOW RATES PAIN 2/10.
--- NOTE | 2021-07-09 02:43 | NUR ---
pt AWAKENS TO VOICE. RATES PAIN 7/10 IN LEFT UPPER ABD. REQUESTING WARM PACK, DECLINES PRN PAIN MEDICATION. ASSESSMENT COMPLETE. BOWEL TONES ACTIVE X 4. ABD SOFT, TENDER LEFT UPPER QUADRANT, MID ABD. IVF INFUSING WNL. SCDS ON. CALL LIGHT IN REACH.
--- NOTE | 2021-07-09 04:44 | NUR ---
IV PUMP ALARMING, DISTAL OCCLUSION. IVF NOW INFUSING WNL. pt OPENS EYES BRIEFLY AND CLOSES. NO DISTRESS NOTED.
--- NOTE | 2021-07-09 06:45 | NUR ---
pt SLEEPING, AWAKENS TO VOICE. VSS. PO MEDICATION ADMINISTERED. pt SITTING UP IN BED. DENIES NEED FOR PRN PAIN MEDICATION "I HURT BUT THE WARM PACKS WORK". PO FLUIDS PROVIDED. CALL LIGHT IN REACH.
--- NOTE | 2021-07-09 07:39 | NUR ---
RECVikram. BEDSIDE REPORT FROM FROM NIGHT RN, ASSUMED ALL CARE OF PT.
--- NOTE | 2021-07-09 08:30 | NUR ---
PT. AMBULATED FROM BED TO BSC AND THEN TO CHAIR, HAD SOME DIZZINESS AND STOPPED ONE TIME. APPETITE IS FAIR, LIQUIDS AND YOGURT THIS MORNING. IV IS INFILTRATED AND DC'D WITH TIP INTACT. SLIGHT SWELLING AT THE SITE. DENIES DISCOMFORT. DENIES PAIN, HAS SLIGHT NAUSEA BUT DID NOT WANT MEDICATION AT THIS TIME.
--- NOTE | 2021-07-09 09:30 | NUR ---
PT. DENIED NAUSEA OR PAIN WITH MORNING FOOD AND LIQUIDS. SHE DID NOT LIKE HER FOOD CHOICES AND YOGURT WAS CHANGED TO WHAT SHE LIKED.
[2021-07-09] MEDS ORDERED: SUCRALFATE1 GM PO (11:10)
--- NOTE | 2021-07-09 11:44 | NUR ---
PREPARE PT. FOR DISCHARGE HOME, ADVANCE DIET TOLERATED, FOLLOW UP WITH PCP 1-2 WEEKS AND [facility] BEFORE . PHARMACY TO CONSULT ON MEDS, CARAFATE. REVIEWED DC INSTRUCTIONS, VERBALIZED UNDERSTANDING. TO PICK HER UP OUT FRONT.
--- NOTE | 2021-07-09 13:40 | DS ---
[facility] [address], [place] [address] Signed ADMISSION DATE: 07/07/2021 DISCHARGE DATE: 07/09/2021 REASON FOR ADMISSION: This is a 31-year-old morbidly obese white woman, who lives in [place], [place] with her four children and live-in boyfriend and underwent gastric sleeve resection for morbid obesity at [facility] on May 13, 2021. She has lost 70 pounds from the operation. In the past week, she has had increasing epigastric and left upper abdominal pain. She has had virtual followup visits at [facility], has been made aware of this. Additionally, the patient has a persistent bradycardia with heart rate as low as 39 and a generally in the 50s. She has had some postural hypotension type symptoms from this. She presented to the emergency room in [place], [place] a few days ago and evaluated by CT scan without IV contrast showing no sign of complication related to operation. She was noted to have a low platelet count, though it is now thought that was a spurious finding (70,000). Her symptoms have persisted and she was advised by her provider Ms. Tilley at the [facility] to present to [facility] where she was evaluated by Dr. Kitchen and considered to have persistent symptoms of epigastric pain mostly after swallowing food. Evaluation by Dr. Kitchen and subsequently Dr. Savage was undertaken. A repeat CT scan with IV and GI contrast was performed confirming once again no evidence of SUTURE LINE leakage or other abnormality. There is no evidence of splenic vein thrombosis or spleen problem in any way. Her platelet count was noted to be 220,000, unlike previous thrombocytopenia that was previouslym noted. The patient has had bradycardic episodes as low as the high 30s, occasionally with some near syncopal changes. This occured with the pain she experienced with swallowing. She is admitted for further evaluation and care. It is subsequently noted that the patient self described as having "irritable bowel syndrome". The emergency room physicians had contacted [facility] covering surgeon, Dr. Malone, who was unable to accept the patient in transfer as the hospital was consider "full." Upon admission, she was rehydrated significantly and that alone made her feel somewhat better. She was noted to have a pulse in the low 40s previously 54 with a blood pressure of 102/50, O2 saturations 100% on room air. Her examination showed no problem with the laparoscopic incisions. No sign of hernia. No ascites and only mild epigastric tenderness. LABORATORY STUDIES: Electronically Signed By: DUSTIN HAGAN MD 07/09/21 1340 PATIENT NAME: KD CARRIZALES DISCHARGE SUMMARY DATE OF : [birth year] REPORT #: [id number] PHYSICIAN: DUSTIN HAGAN MD PCP: YANI TILLEY REPORT IS CONFIDENTIAL AND NOT TO BE RELEASED WITHOUT AUTHORIZATION [address] [address] Signed Showed a white count of 10.5, hematocrit of 44.6, platelets 216,000 and normal Chem profile. Urinalysis did have 3 to 6 red cells per high-power field. CT scan showed no evidence of complication related to surgery. HOSPITAL COURSE: She underwent IV fluid resuscitation as noted and underwent on July 08, 2021, Friday upper endoscopy. She was found to have a completely normal-appearing esophagus, stomach remnant and duodenum. CLOtest was negative ultimately. Biopsies were obtained. She was empirically started on Carafate in addition to PPI medication, which she has been taking. She seemed to have some improvement with the Carafate. This was found to be negative for H pylori. She was tolerating a full liquid diet without much pain upon swallowing as she had before. It is noted she has had no dysphagia, no hematemesis and no blood per rectum. She feels reasonably well enough to go home. She should maintain a diet that she tolerates; at this time, it appears to be a full liquid diet. She has already had a 70 pounds weight loss since her operation and it appears to have been well performed based on endoscopic findings. There is certainly no evidence of ulceration, ischemia distortion in any way in or other problem. She will follow up with Ms. Tilley at the [facility]. Additionally, I have asked her to follow up sooner at [facility] in their clinic setting; she was previously scheduled to followup with them in October. As regard to urinalysis, leukocyte esterase was negative. There were 4 to 6 red cells per high-power field and 2 to 3 white cells per high-power field. Squamous +1. I would not treat this empirically as an infection problem as she is asymptomatic in more typical ways of urinary tract infection. DISCHARGE MEDICATIONS: Will include: 1. Sucralfate 1 g p.o. before meals and at bedtime on empty stomach, dispense 120, refills 3. 2. Vitamin D 5000 units daily. 3. Albuterol inhaler as needed for shortness of breath. 4. Omeprazole 20 mg p.o. daily. 5. Zofran 8 mg t.i.d. as needed for nausea or vomiting. 6. She will discontinue her Motrin. If she is taking control pill, she will resume it though documentation suggest that she no longer takes her Provera which had been prescribed previously. Electronically Signed By: DUSTIN HAGAN MD 07/09/21 4634 PATIENT NAME: KD CARRIZALES DISCHARGE SUMMARY DATE OF : [birth year] REPORT #: [id number] PHYSICIAN: DUSTIN HAGAN MD PCP: YANI TILLEY REPORT IS CONFIDENTIAL AND NOT TO BE RELEASED WITHOUT AUTHORIZATION [facility] [address], [place] [address] Signed DISCHARGE DIAGNOSES: 1. Non ulcer dyspepsia; status post bariatric surgical intervention (sleeve resection) at [facility] two months ago on or about May 13, 2021. 2. Morbid obesity; weight loss 70 pounds since surgery. 3. History of cholecystectomy. 4. Possible irritable bowel syndrome (the patient's self description). MD MIGUEL ANGEL Hoskins/JENISE /[id number] cc: Dr. Ade Paige [facility] Copies: ~ Electronically Signed By: DUSTIN HAGAN MD 07/09/21 1340 PATIENT NAME: KD CARRIZALES DISCHARGE SUMMARY DATE OF : [birth year] REPORT #: [id number] PHYSICIAN: DUSTIN HAGAN MD PCP: YANI TILLEY REPORT IS CONFIDENTIAL AND NOT TO BE RELEASED WITHOUT AUTHORIZATION
== END 2021-07-09 13:00 | disposition home or self-care (01) | DRG 392 ==
LOC: ED 15:06 → MS 15:07
PROVIDERS: ADMIT Surgery; ATTEND Surgery
PROC: 0DB98ZX Excision of Duodenum, Via Natural or Artificial Opening Endoscopic, Diagnostic (ICD-10-PCS; principal; 2021-07-08 10:03)
DX: R10.13 Epigastric pain (principal); J45.909 Unspecified asthma, uncomplicated; R00.1 Bradycardia, unspecified; E66.01 Morbid (severe) obesity due to excess calories; K58.9 Irritable bowel syndrome, unspecified; Z98.84 Bariatric surgery status; Z90.49 Acquired absence of other specified parts of digestive tract; Z98.890 Other specified postprocedural states; Z79.899 Other long term (current) drug therapy; Z88.8 Allergy status to other drugs, medicaments and biological substances
CPT/HCPCS: 36415; 74177; 80053; 81001; 83690; 85025; 87502; 93005; 93010; 96361; 96375; 99285-25; A9270; C9803; J0461; J1100; J1170; J1644; J1885; J2270; J2405; J2550; J2704; J2765; J3475; J7030; J7121; Q9967; U0003

== ENCOUNTER 2022-05-08 13:05 | Emergency (ER) | payer OTHER ==
[~2022-05-08] VITALS: Ht 170.2 cm; Wt 98.4 kg
[~2022-05-08 13:05] MED LIST changes: +BIOTIN5 M1 PO; +CALCIUM CITRAT250 MG PO; +DILAUDID2 MG PO; +FOLIC ACID20 MG PO; +METFORMIN HCL1000 MG PO; +MULTI VITAMIN1 EACH PO; +NYSTOP60 GM TOP; +OMEPRAZOLE20 MG PO; +PROVENTIL HFA6.7 GM INH; +SUCRALFATE1 GM PO; +VENLAFAXINE HC150 M1 PO; +VITAMIN B-121000 MCG PO
[2022-05-08] MEDS ORDERED: EFFEXOR XR150 MG PO (13:17)
[2022-05-08] MEDS ORDERED: BUSPIRONE HCL7.5 MG PO (13:17)
[2022-05-08] MEDS ORDERED: NAPROSYN500 MG PO (15:08)
[2022-05-08] MEDS ORDERED: TRAMADOL HCL50 MG PO (15:20)
== END 2022-05-08 15:24 | disposition home or self-care (01) ==
LOC: ED 13:05
DX: N83.292 Other ovarian cyst, left side (principal); N83.201 Unspecified ovarian cyst, right side; J45.909 Unspecified asthma, uncomplicated; Z88.5 Allergy status to narcotic agent; Z91.013 Allergy to seafood; Z91.048 Other nonmedicinal substance allergy status; Z79.899 Other long term (current) drug therapy
CPT/HCPCS: 36415; 76830; 76856; 80053; 81003; 83690; 84703; 85025; 87210; 96361; 96374; 96375; 99284-25; J1885; J2405; J7030

== ENCOUNTER 2023-06-23 10:59 | Emergency (ER) | payer OTHER ==
[~2023-06-23] VITALS: Ht 170.2 cm; Wt 106.2 kg
[~2023-06-23 10:59] MED LIST changes: +BUSPIRONE HCL7.5 MG PO; +EFFEXOR XR150 MG PO; +NAPROSYN500 MG PO
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
[2023-06-23 12:18] LABS: BASOPHILS 1.1 % (0-2); EOSINOPHILS 1.4 % (0-6); HEMOGLOBIN 14.1 g/dL (12.0-18.0); LYMPHOCYTES 28.1 % (24-44); MCH 29.7 (27-36); MCHC 33.5 g/dl (30-36); MCV 88.7 fl (81-99); MONOCYTES 6.4 % (0-12); PLATELET COUNT 223 K/uL (140-440); RBC 4.73 M/ul (4.3-5.7); RDW 12.7 (10.5-15.0)
[2023-06-23 12:24] LABS: BILIRUBIN, URINE NEGATIVE (negative); BLOOD/HGB, URINE LARGE (Negative); KETONE, URINE TRACE (Negative); LEUK ESTERASE, URINE SMALL (negative); NITRITE, URINE POSITIVE (negative)
[2023-06-23 12:27] LABS: CALCIUM 8.6 mg/dL (8.5-10.1); CREATININE, SERUM 0.75 mg/dL (0.55-1.02)
[2023-06-23 12:34] LABS: CASTS, URINE NONE SEEN \\lpf; CRYSTALS, URINE NONE SEEN (0-1+); EPITHELIAL CELLS, URINE SQUAMOUS 1+ /lpf (0-1+); RED BLOOD CELLS, URINE >50 /hpf (0-5)
[2023-06-23 12:38] LABS: BACTERIA, URINE RARE /hpf (negative); COLLECTION TYPE, URINE CLEAN CATCH; REFLEX CULTURE, URINE No (No)
[2023-06-23 13:26] LABS: ABO B
[2023-06-23 13:27] LABS: RH POSITIVE
[2023-06-23] MEDS ORDERED: HYDROmorphone HCL 1 MG/ML SYR IV PRN (14:15)
[2023-06-23] MEDS ORDERED: SODIUM CHLORIDE 0.9% 1,000 ML IV PRN (17:45)
[2023-06-23] MEDS ORDERED: TRANEXAMIC ACI650 MG PO (18:30)
[2023-06-23] MEDS ORDERED: TRANEXAMIC ACID 1,000 MG/10 ML AMP PO ONE (18:30)
[2023-06-23] MEDS ORDERED: TRAMADOL HCL50 MG PO (18:30)
[2023-06-23 18:55] VITALS: BP 107/56
== END 2023-06-23 18:55 | disposition home or self-care (01) ==
LOC: ED 10:59
PROVIDERS: Emergency Medicine
DX: N93.8 Other specified abnormal uterine and vaginal bleeding (principal); Z91.013 Allergy to seafood; Z91.040 Latex allergy status; Z88.5 Allergy status to narcotic agent; Z91.048 Other nonmedicinal substance allergy status; Z79.899 Other long term (current) drug therapy
CPT/HCPCS: 36415; 76830; 76856; 80048; 81001; 84703; 85025; 86900; 86901; J1170

== ENCOUNTER 2024-02-10 14:49 | Emergency (ER) | payer OTHER ==
[~2024-02-10] VITALS: Ht 170.2 cm; Wt 104.3 kg
[~2024-02-10 14:49] MED LIST changes: +TRANEXAMIC ACI650 MG PO
--- OUTSIDE RECORDS SUMMARY | 2024-02-10 14:55 | XMS ---
PreManage Notification: KD CARRIZALES Security General I Farmworker Events No recent Security Events currently on file CRITERIA MET - [facility] - 2 Visits in 30 Days CARE PROVIDERS -, [facility] Dentist: Catalyst Impregnator [facility] PHONE: [phone] -[employer]- Dentist: Catalyst Impregnator Current [facility] PHONE: [phone] YANI MELVIN Physician Assistant Sonia Jeong PHONE: Unknown [facility]/Center: [facility] Qualified [facility] [place] Current WORKERS CLINIC [facility] ([facility] PHONE: [phone] Lawanda has no Care Guidelines for this patient. Fly VISIT COUNT (12 MO.) 2 [facility] [place] 2 [facility] TOTAL 4 NOTE: Visits indicate total known visits. ED/UCC VISIT TRACKING (12 MO.) 02/10/2024 14:49 [facility] [place] TYPE: Emergency COMPLAINT: - ABDOMINAL PAIN 01/27/2024 13:34 [facility] [place] TYPE: Emergency DIAGNOSES: - Headache, unspecified - MIGRAINE VERTIGO 06/23/2023 11:00 [facility] [place] TYPE: Emergency COMPLAINT: - VAGINAL BLEEDING, CRAMPING DIAGNOSES: - Abnormal uterine and vaginal bleeding, unspecified - Allergy status to narcotic agent - Allergy to seafood - Latex allergy status - Other nursing home (current) drug therapy - Other nonmedicinal substance allergy status - Other specified abnormal uterine and vaginal bleeding 04/29/2023 20:05 [facility] [place] TYPE: Emergency DIAGNOSES: - Postural orthostatic tachycardia syndrome [POTS] - PASSING OUT INPATIENT VISIT TRACKING (12 MO.) No inpatient visits to display in this time frame [email or web address]
[2024-02-10] MEDS ORDERED: DULOXETINE HCL60 MG PO (16:01)
[2024-02-10] MEDS ORDERED: ondansetron HCL 4 MG/2 ML VIAL IV ONE (16:15)
[2024-02-10 16:19] LABS: EOSINOPHILS 0.9 % (0-6); HEMATOCRIT 44.1 % (35.0-50.0); LYMPHOCYTES 32.9 % (24-44); MCH 29.6 (27-36); MCHC 33.9 g/dl (30-36); MCV 87.5 fl (81-99); MONOCYTES 5.6 % (0-12); NEUTROPHILS 59.6 % (39-80); PLATELET COUNT 224 K/uL (140-440); RBC 5.04 M/ul (4.3-5.7); RDW 12.7 (10.5-15.0)
[2024-02-10] MEDS ORDERED: SODIUM CHLORIDE 0.9% 1,000 ML IV PRN (16:30)
[2024-02-10] MEDS ORDERED: HYDROmorphone HCL 1 MG/ML SYR IV ONE (16:30)
[2024-02-10 16:33] LABS: ALBUMIN 3.9 g/dL (3.4-5.0); ALBUMIN/GLOBULIN RATIO 0.93 (1.1-2.4); ANION GAP 9.1 (7-21); BILIRUBIN, TOTAL 0.7 ng/dL (0.2-1.0); BUN/CREATININE RATIO 11.25 (6.0-28.6); CALCIUM 9.4 mg/dL (8.5-10.1); CREATININE, SERUM 0.8 mg/dL (0.55-1.02); POTASSIUM 4.1 mmol/L (3.5-5.1); PROTEIN, TOTAL 8.1 g/dL (6.4-8.2)
[2024-02-10 16:39] LABS: BILIRUBIN, URINE NEGATIVE (negative); BLOOD/HGB, URINE NEGATIVE (Negative); KETONE, URINE TRACE (Negative); LEUK ESTERASE, URINE NEGATIVE (negative); NITRITE, URINE NEGATIVE (negative)
[2024-02-10] MEDS ORDERED: diphenhydrAMINE HCL 50 MG/ML VIAL IV ONE (16:45)
[2024-02-10] MEDS ORDERED: ONDANSETRON ODT4 MG PO (18:09)
[2024-02-10] MEDS ORDERED: TRAMADOL HCL50 MG PO (18:09)
[2024-02-10 18:15] VITALS: BP 113/71
== END 2024-02-10 18:15 | disposition home or self-care (01) ==
LOC: ED 14:49
PROVIDERS: Emergency Medicine
DX: R10.31 Right lower quadrant pain (principal); Z88.5 Allergy status to narcotic agent; Z91.013 Allergy to seafood; Z91.09 Other allergy status, other than to drugs and biological substances; Z79.899 Other long term (current) drug therapy
CPT/HCPCS: 36415; 74176; 80053; 81003; 83690; 84703; 85025; 96361; 96374; 96375; 99284-25; J1171; J1200; J2405; J7030